=== PATIENT | female | born 1940 | race Caucasian/White ===

== ENCOUNTER 2017-05-30 16:24 | Inpatient (IN) | payer MEDICARE, OTHER ==
[2017-05-30] VITALS (7 sets, daily range): BP systolic 80–141; BP diastolic 51–73; PULSE 61–82; RESP 18; TEMP 96–97.5; O2SAT 96–100
[~2017-05-30] VITALS: Ht 175.3 cm; Wt 93.0 kg
[2017-05-30] MEDS ORDERED: IOHEXOL 350 MG/ML 10 ML VIAL (for RAD DIAG) IVCONTRAST ONE (16:25)
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
[2017-05-30] MEDS ORDERED: PROPOFOL 1000 MG/100 ML INJ 100 ML ONE (16:52)
[2017-05-30 16:58] LABS: AUTOMATED NEUTROPHIL # 7.7 TH/MM3 (1.8-7.7); BASOPHIL # 0.1 TH/MM3 (0-0.2); BASOPHIL % 0.5 % (0.0-2.0); EOSINOPHIL # 0.1 TH/MM3 (0-0.4); EOSINOPHIL % 0.7 % (0.0-4.0); HEMATOCRIT 35.4 % (35.0-46.0); HEMOGLOBIN 12.1 GM/DL (11.6-15.3); LYMPH % 23.4 % (9.0-44.0); LYMPHOCYTE # 2.6 TH/MM3 (1.0-4.8); MEAN CELL VOLUME 92.7 FL (80.0-100.0); MEAN CORPUSCULAR HEMOGLOBIN 31.6 PG (27.0-34.0); MEAN CORPUSCULAR HGB CONC 34.2 % (32.0-36.0); MEAN PLATELET VOLUME 7.8 FL (7.0-11.0); MONO % 4.7 % (0.0-8.0); MONOCYTE # 0.5 TH/MM3 (0-0.9); NEUT % 70.7 % (16.0-70.0); PLATELET COUNT 251 TH/MM3 (150-450); RED BLOOD COUNT 3.82 MIL/MM3 (4.00-5.30); WHITE BLOOD COUNT 10.9 TH/MM3 (4.0-11.0)
--- NOTE | 2017-05-30 17:04 | RADRPT ---
EXAM DATE/TIME: 05/30/2017 16:54 [facility] COMPARISON: CHEST SINGLE AP, May 30, 2017, 16:25. INDICATIONS : Post procedure, Chest tube and intubation. MEDICAL HISTORY : None. SURGICAL HISTORY : None. ENCOUNTER: Initial ACUITY: 1 day PAIN SCORE: Non-responsive. LOCATION: Bilateral chest FINDINGS: ET in good position. Significant gastric distention. Chest tube on the left apparently reflected po steriorly. CONCLUSION: Significant gastric distention. ET in good position. Carlos An MD FACR on May 30, 2017 at 17:01 Board Certified Radiologist. This report was verified electronically.
[2017-05-30] MEDS ORDERED: ETOMIDATE 40 MG/20 ML VIAL ONE (17:07)
[2017-05-30] MEDS ORDERED: ROCURONIUM INJ 50 MG/5 ML VIAL ONE (17:08)
[2017-05-30 17:14] LABS: PROTHROMBIN TIME - PATIENT 10.1 SEC (9.8-11.6)
[2017-05-30] MEDS ORDERED: MAGNESIUM HYDROXIDE SUSP 30 ML CUP PO PRN (17:15)
[2017-05-30] MEDS ORDERED: LACTULOSE SYRUP 20 GM/30 ML CUP PO PRN (17:15)
[2017-05-30] MEDS ORDERED: PROPOFOL 1000 MG/100 ML INJ 100 ML IV PRN (17:15)
[2017-05-30] MEDS ORDERED: BISACODYL 10 MG SUPP RECTAL PRN (17:15)
[2017-05-30] MEDS ORDERED: fentaNYL DRIP 250 ML IV PRN (17:15)
[2017-05-30] MEDS ORDERED: CHLORHEXIDINE GLUCONATE 2 % 1 PACK (2 CLOTHS) TOP PRN (17:15)
[2017-05-30] MEDS ORDERED: SENNOSIDES 8.6 MG TAB PO PRN (17:15)
[2017-05-30] MEDS ORDERED: MISCELLANEOUS NURSING INFORMATION XX SCH (17:15)
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
[2017-05-30] MEDS: PHARMACY NEEDS HT/WT ENTERED INTO MEDITECH SCH ×2 (18:00→18:15)
[2017-05-30] MEDS: SODIUM CHLOR 0.9% 1000 ML INJ 1,000 ML IV SCH (18:00)
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
[2017-05-30] MEDS: fentaNYL DRIP 250 ML IV PRN (18:53)
[2017-05-30] MEDS: PROPOFOL 1000 MG/100 ML INJ 100 ML IV PRN (18:53)
[2017-05-30] MEDS ORDERED: ALBUMIN 5% INJ 250 ML IV ONE (20:58)
[2017-05-30] MEDS: DOCUSATE SODIUM 50 MG/SENNA 8.6 MG TAB PO SCH (21:00)
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
[2017-05-30] MEDS ORDERED: RESP: ALBUTEROL 2.5 MG/IPRATROPIUM 0.5 MG NEB (PRN) INH (22:15)
[2017-05-30] MEDS: FAMOTIDINE 20 MG/2 ML VIAL IV PUSH SCH (23:08)
[2017-05-31] VITALS (23 sets, daily range): BP systolic 87–117; BP diastolic 49–64; PULSE 87–118; RESP 18–20; TEMP 100–102; O2SAT 91–100
[2017-05-31] MEDS: PROPOFOL 1000 MG/100 ML INJ 100 ML IV PRN ×5 (00:59→23:46)
[2017-05-31] MEDS: ACETAMINOPHEN 650 MG/20.3 ML UDC NG PRN ×3 (02:55→21:49)
[2017-05-31] MEDS: RESP: ALBUTEROL 2.5 MG/IPRATROPIUM 0.5 MG NEB (SCH) INH ×4 (03:20→21:15)
[2017-05-31] MEDS: CHLORHEXIDINE GLUCONATE 2 % 1 PACK (2 CLOTHS) TOP SCH ×2 (04:00→23:46)
[2017-05-31] MEDS: SODIUM CHLOR 0.9% 1000 ML INJ 1,000 ML IV SCH ×2 (04:00→14:00)
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
[2017-05-31 05:17] LABS: CALCIUM 7.2 MG/DL (8.5-10.1); CREATININE 1.1 MG/DL (0.50-1.00)
[2017-05-31 05:35] LABS: CALCIUM-PROTEIN CORRECTED 7.9 MG/DL (8.5-10.1); TOTAL PROTEIN 5.8 GM/DL (6.4-8.2)
[2017-05-31] MEDS: CHLORHEXIDINE 0.12% (ORAL KIT) 15 ML CUP MT SCH ×2 (07:58→19:47)
[2017-05-31] MEDS: DOCUSATE SODIUM 50 MG/SENNA 8.6 MG TAB PO SCH ×2 (08:40→19:47)
[2017-05-31] MEDS: FAMOTIDINE 20 MG/2 ML VIAL IV PUSH SCH ×2 (08:40→19:47)
[2017-05-31] MEDS ORDERED: ALBUMIN 5% INJ 500 ML IV ONE (11:00)
[2017-05-31 11:12] LABS: AUTOMATED NEUTROPHIL # 2.4 TH/MM3 (1.8-7.7); BASOPHIL % 0.4 % (0.0-2.0); EOSINOPHIL % 0.3 % (0.0-4.0); HEMATOCRIT 26.6 % (35.0-46.0); HEMOGLOBIN 8.8 GM/DL (11.6-15.3); LYMPH % 17.9 % (9.0-44.0); LYMPHOCYTE # 0.6 TH/MM3 (1.0-4.8); MEAN CELL VOLUME 94.3 FL (80.0-100.0); MEAN CORPUSCULAR HEMOGLOBIN 31.2 PG (27.0-34.0); MEAN CORPUSCULAR HGB CONC 33.1 % (32.0-36.0); MEAN PLATELET VOLUME 7.9 FL (7.0-11.0); MONO % 4.7 % (0.0-8.0); MONOCYTE # 0.1 TH/MM3 (0-0.9); NEUT % 76.7 % (16.0-70.0); PLATELET COUNT 116 TH/MM3 (150-450); RED BLOOD COUNT 2.82 MIL/MM3 (4.00-5.30); RED CELL DISTRIBUTION WIDTH 14.6 % (11.6-17.2); WHITE BLOOD COUNT 3.1 TH/MM3 (4.0-11.0)
[2017-05-31] MEDS ORDERED: SODIUM CHLOR 0.9% 1000 ML INJ 1,000 ML IV ONE (15:45)
[2017-05-31 18:15] LABS: BICARBONATE 17.7 MEQ/L (21.0-32.0); CALCIUM 6.4 MG/DL (8.5-10.1); CREATININE 1.22 MG/DL (0.50-1.00)
[2017-05-31] MEDS: fentaNYL DRIP 250 ML IV PRN ×2 (18:20→19:46)
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
[2017-05-31 18:29] LABS: CALCIUM-PROTEIN CORRECTED 7.5 MG/DL (8.5-10.1); TOTAL PROTEIN 4.9 GM/DL (6.4-8.2)
[2017-05-31] MEDS ORDERED: SODIUM BICARBONATE 8.4% INJ 50 MEQ/50 ML SYR ONE (21:40)
[2017-05-31 21:52] LABS: AUTOMATED NEUTROPHIL # 2.1 TH/MM3 (1.8-7.7); BASOPHIL % 0.3 % (0.0-2.0); EOSINOPHIL % 0.9 % (0.0-4.0); HEMATOCRIT 42.3 % (35.0-46.0); LYMPH % 24.3 % (9.0-44.0); LYMPHOCYTE # 0.7 TH/MM3 (1.0-4.8); MEAN CELL VOLUME 91.4 FL (80.0-100.0); MEAN CORPUSCULAR HEMOGLOBIN 30.2 PG (27.0-34.0); MEAN CORPUSCULAR HGB CONC 33.1 % (32.0-36.0); MEAN PLATELET VOLUME 8.6 FL (7.0-11.0); MONO % 2.8 % (0.0-8.0); MONOCYTE # 0.1 TH/MM3 (0-0.9); NEUT % 71.7 % (16.0-70.0); PLATELET COUNT 132 TH/MM3 (150-450); RED BLOOD COUNT 4.62 MIL/MM3 (4.00-5.30); RED CELL DISTRIBUTION WIDTH 15.7 % (11.6-17.2); WHITE BLOOD COUNT 2.9 TH/MM3 (4.0-11.0)
[2017-05-31] MEDS ORDERED: SODIUM BICARBONATE 8.4% SOLN 50 MEQ/50 ML VIAL IV PUSH ONE (22:00)
[2017-05-31] MEDS: SODIUM BICARBONATE 8.4% INJ 100 MEQ in DEXTROSE 5% IN WATE 1000ML INJ 1,000 ML IV SCH ×2 (22:00)
[2017-05-31] MEDS ORDERED: SODIUM BICARBONATE 8.4% INJ 50 MEQ/50 ML SYR IV PUSH ONE (22:00)
[2017-05-31 22:24] LABS: BICARBONATE 15.5 MEQ/L (21.0-32.0); CALCIUM 6.9 MG/DL (8.5-10.1); CREATININE 1.43 MG/DL (0.50-1.00)
[2017-05-31 22:40] LABS: CALCIUM-PROTEIN CORRECTED 7.8 MG/DL (8.5-10.1); TOTAL PROTEIN 5.4 GM/DL (6.4-8.2)
[2017-05-31] MEDS ORDERED: LACTATED RINGER'S 1000 ML INJ 1,000 ML IV ONE (23:00)
[2017-06-01] VITALS (20 sets, daily range): BP systolic 86–161; BP diastolic 52–67; PULSE 111–123; RESP 18–26; TEMP 99.1–101.1; O2SAT 0–96
[2017-06-01] MEDS: RESP: ALBUTEROL 2.5 MG/IPRATROPIUM 0.5 MG NEB (SCH) INH ×3 (03:21→14:58)
--- NOTE | 2017-06-01 04:20 | RADRPT ---
EXAM DATE/TIME: 06/01/2017 02:30 [facility] COMPARISON: CHEST SINGLE AP, May 31, 2017, 3:10. INDICATIONS : Evaluate for pneumothorax. MEDICAL HISTORY : Unobtainable. SURGICAL HISTORY : Unobtainable. ENCOUNTER: Subsequent ACUITY: 2 days PAIN SCORE: Non-responsive. LOCATION: Bilateral chest FINDINGS: 2 the endotracheal tube 4 cm proximal to eri. Tip of the nasogastric tube in the fundus the stomac h. Left thoracostomy tube. No pneumothorax. Elevation left hemidiaphragm. Bibasilar consolidation. Th e consolidation is progressed. No effusions. Heart is normal in size. CONCLUSION: 1. No pneumothorax. 2. Worsening bibasilar consolidation. Yan Agrawal Jr., MD on June 01, 2017 at 4:18 Board Certified Radiologist. This report was verified electronically.
[2017-06-01] MEDS ORDERED: ALBUMIN 5% INJ 500 ML IV ONE ×2 (05:45→11:15)
[2017-06-01] MEDS ORDERED: SODIUM BICARBONATE 8.4% SOLN 50 MEQ/50 ML VIAL IV PUSH ONE (06:01)
[2017-06-01] MEDS: NOREPINEPHRINE 4 MG/D5W 250 ML IV PRN ×3 (07:00→17:15)
[2017-06-01] MEDS ORDERED: VASOPRESSIN 20 UNITS/ML VIAL ONE ×3 (07:04→07:09)
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
--- NOTE | 2017-06-01 07:28 | PD.PROCEDR ---
Central Line Procedure REASON FOR PROCEDURE Central venous access PROCEDURE PERFORMED Central line placement: left femoral attempted SC,IJ CONSENT Informed consent for procedure was obtained The risks and benefits of the procedure were discussed to include but limited to bleeding, clot formation, infection, and even . ANESTHESIA DESCRIPTION OF THE PROCEDURE The area was exposed and cleansed with ChloraPrep, times two. Large sterile drape was used to cover the patient, with the site exposed, under sterile conditions including cap, face mask, sterile gown, and sterile gloves. On single attempt, the introducer needle was inserted with negative pressure in syringe and venous flash was obtained. The guide wire was then advanced without any restriction and the needle was removed. The dilator was used without any complications. Using Seldinger technique the [ tlc] catheter was advanced over the guide wire to a depth of [20cm ] centimeters. The guide wire was removed. All ports were aspirated with dark venous blood return and flushed easily with sterile saline. All ports were capped. Antibiotic disc was placed around central line at puncture site. The central line was secured to the skin with two interrupted 2.0 silk sutures. The area was bandaged with sterile see-through central line bandage. RADIOLOGICAL DATA COMPLICATIONS: No apparent complications ESTIMATED BLOOD LOSS: Less than 1 cc. Elvia Maciel MD Jun 01, 2017 07:28
--- NOTE | 2017-06-01 07:44 | RADRPT ---
EXAM DATE/TIME: 06/01/2017 07:23 [facility] COMPARISON: CHEST SINGLE AP, June 01, 2017, 2:30. INDICATIONS : Line placement. Patient shortness of breath and consolidation in the left lung base. MEDICAL HISTORY : Unobtainable. SURGICAL HISTORY : Unobtainable. ENCOUNTER: Subsequent ACUITY: 2 days PAIN SCORE: Non-responsive. LOCATION: Bilateral chest FINDINGS: A single AP erect portable view of the chest was obtained and again demonstrates an endotracheal tube in place with the tip approximately 4 cm above the eri. The nasogastric tube remains in place wit h the tip in the stomach. The left-sided chest tube remains in place with no pneumothorax. Multiple o verlying electrocardiogram leads and tubing are present. There is no visualized central line. Consoli dation remains in the left lung base with air bronchograms without significant change. There is disco id atelectasis at the right lung base. The heart size remains prominent. The left costophrenic angle remains blunted in appearance. The bony thorax is intact with an old healed right-sided rib fracture. CONCLUSION: 1. No visualized central line which should be correlated clinically. 2. Consolidation remains at the left lung base without significant change. 3. Discoid atelectasis in the right lung base. 4. Left-sided chest tube in place with no pneumothorax. Chester Canales MD on June 01, 2017 at 7:37 Board Certified Radiologist. This report was verified electronically.
[2017-06-01] MEDS: CHLORHEXIDINE 0.12% (ORAL KIT) 15 ML CUP MT SCH (08:00)
[2017-06-01] MEDS: PROPOFOL 1000 MG/100 ML INJ 100 ML IV PRN (08:00)
[2017-06-01 08:34] LABS: HEMATOCRIT 37.9 % (35.0-46.0); HEMOGLOBIN 12.7 GM/DL (11.6-15.3); MEAN CORPUSCULAR HEMOGLOBIN 30.1 PG (27.0-34.0); MEAN CORPUSCULAR HGB CONC 33.5 % (32.0-36.0); MEAN PLATELET VOLUME 8.2 FL (7.0-11.0); PLATELET COUNT 82 TH/MM3 (150-450); RED BLOOD COUNT 4.21 MIL/MM3 (4.00-5.30); WHITE BLOOD COUNT 0.7 TH/MM3 (4.0-11.0)
[2017-06-01 08:45] LABS: INTERNATIONAL NORMALIZED RATIO 1.8 RATIO; PROTHROMBIN TIME - PATIENT 18.1 SEC (9.8-11.6)
[2017-06-01 08:50] LABS: BICARBONATE 17.6 MEQ/L (21.0-32.0); CALCIUM 6.3 MG/DL (8.5-10.1); CREATININE 1.42 MG/DL (0.50-1.00)
[2017-06-01] MEDS ORDERED: FAMOTIDINE 20 MG/2 ML VIAL IV PUSH SCH (09:00)
[2017-06-01] MEDS: DOCUSATE SODIUM 50 MG/SENNA 8.6 MG TAB PO SCH (09:00)
[2017-06-01 09:09] LABS: CALCIUM-PROTEIN CORRECTED 7.5 MG/DL (8.5-10.1); TOTAL PROTEIN 4.6 GM/DL (6.4-8.2)
[2017-06-01] MEDS ORDERED: SODIUM BICARBONATE 8.4% INJ 50 MEQ/50 ML SYR IV PUSH ONE (11:15)
[2017-06-01] MEDS: SODIUM BICARBONATE 8.4% INJ 100 MEQ in DEXTROSE 5% IN WATE 1000ML INJ 1,000 ML IV SCH ×2 (11:16)
[2017-06-01] MEDS ORDERED: VASOPRESSIN INJ 40 UNITS in DEXTROSE 5% IN WATER 100ML INJ 98 ML IV SCH ×2 (12:00)
[2017-06-01] MEDS ORDERED: LACTATED RINGER'S 1000 ML INJ 1,000 ML IV ONE ×2 (13:45→14:00)
[2017-06-01] MEDS ORDERED: SODIUM BICARBONATE 8.4% INJ 50 MEQ/50 ML SYR IV ONE (14:00)
[2017-06-01] MEDS ORDERED: SODIUM CHLOR 0.9% 1000 ML INJ 1,000 ML IV ONE (14:00)
[2017-06-01 15:53] LABS: HEMATOCRIT 35.2 % (35.0-46.0); HEMOGLOBIN 11.5 GM/DL (11.6-15.3); MEAN CELL VOLUME 93.5 FL (80.0-100.0); MEAN CORPUSCULAR HEMOGLOBIN 30.5 PG (27.0-34.0); MEAN CORPUSCULAR HGB CONC 32.6 % (32.0-36.0); MEAN PLATELET VOLUME 8.1 FL (7.0-11.0); PLATELET COUNT 44 TH/MM3 (150-450); RED BLOOD COUNT 3.76 MIL/MM3 (4.00-5.30); WHITE BLOOD COUNT 0.6 TH/MM3 (4.0-11.0)
[2017-06-01 16:16] LABS: BICARBONATE 13.1 MEQ/L (21.0-32.0); CALCIUM 6.3 MG/DL (8.5-10.1); CREATININE 1.89 MG/DL (0.50-1.00)
[2017-06-01] MEDS ORDERED: SODIUM BICARBONATE 8.4% INJ 50 MEQ/50 ML SYR ONE (16:28)
[2017-06-01 16:32] LABS: CALCIUM-PROTEIN CORRECTED 7.8 MG/DL (8.5-10.1); TOTAL PROTEIN 4.1 GM/DL (6.4-8.2)
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
[2017-06-01] MEDS ORDERED: SODIUM BICARBONATE 8.4% SOLN 50 MEQ/50 ML VIAL IV ONE (16:45)
[2017-06-01] MEDS ORDERED: EPINEPHrine 2 MG/D5W 250 ML IV PRN ×2 (16:45)
[2017-06-01 16:46] LABS: CORRECTED NUCLEATED RBC 12 /100 WBC (0-0); LYMPHOCYTES 88 % (9-44); NUCLEATED RED BLOOD CELL 3 (0-0); POLYS (SEG NEUTROPHILS) 8 % (16-70)
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
== END 2017-06-01 22:10 | disposition expired | DRG 208 ==
LOC: EDSEX 16:24 → NEPI 16:24 → EDBD 17:56 → NEDA 17:56 → N03A 18:11
PROVIDERS: ADMIT Surgery Trauma Surgery; ATTEND Surgery Trauma Surgery
PROC: 5A1945Z Respiratory Ventilation, 24-96 Consecutive Hours (ICD-10-PCS; principal; 2017-05-30)
PROC: 0W9B30Z Drainage of Left Pleural Cavity with Drainage Device, Percutaneous Approach (ICD-10-PCS; 2017-05-30)
PROC: 0BH17EZ Insertion of Endotracheal Airway into Trachea, Via Natural or Artificial Opening (ICD-10-PCS; 2017-05-30)
PROC: 30233N1 Transfusion of Nonautologous Red Blood Cells into Peripheral Vein, Percutaneous Approach (ICD-10-PCS; 2017-05-30)
PROC: 04HY32Z Insertion of Monitoring Device into Lower Artery, Percutaneous Approach (ICD-10-PCS; 2017-06-01)
PROC: 02HV33Z Insertion of Infusion Device into Superior Vena Cava, Percutaneous Approach (ICD-10-PCS; 2017-06-01)
DX: S27.2XXA Traumatic hemopneumothorax, initial encounter (principal); T79.4XXA Traumatic shock, initial encounter; J96.01 Acute respiratory failure with hypoxia; J96.02 Acute respiratory failure with hypercapnia; N17.9 Acute kidney failure, unspecified; S21.332A Puncture wound without foreign body of left front wall of thorax with penetration into thoracic cavity, initial encounter; E87.2 Acidosis; R65.10 Systemic inflammatory response syndrome (SIRS) of non-infectious origin without acute organ dysfunction; S22.42XA Multiple fractures of ribs, left side, initial encounter for closed fracture; S27.322A Contusion of lung, bilateral, initial encounter; T88.4XXA Failed or difficult intubation, initial encounter; J45.909 Unspecified asthma, uncomplicated; D72.819 Decreased white blood cell count, unspecified; Z66 Do not resuscitate; R40.2412 Glasgow coma scale score 13-15, at arrival to emergency department
CPT/HCPCS: 31500; 36430; 36600; 71045; 71260; 72129; 74177; 76937; 80048; 82805; 83605; 84155; 85007; 85025; 85027; 85610; 85730; 86850; 86900; 86901; 86920; 93306; 94002; 94003; 94640; 94664; J0171; J3010; J7030; J7060; J7070; J7120; P9016; P9045; Q9967